=== PATIENT | male | born 1960 | race Caucasian/White ===

== ENCOUNTER 2022-03-08 19:02 | Emergency (ER) | payer OTHER ==
[~2022-03-08] VITALS: Ht 177.8 cm; Wt 72.6 kg
[2022-03-08] MEDS ORDERED: CRESTOR40 MG (19:07)
[2022-03-08] MEDS ORDERED: CARDIZEM CD240 MG (19:08)
[2022-03-08] MEDS ORDERED: ASA81 MG PO (19:08)
== END 2022-03-08 19:46 | disposition home or self-care (01) ==
LOC: ER 19:02
DX: K64.9 Unspecified hemorrhoids (principal)